=== PATIENT | male | born 1995 | race Caucasian/White ===

== ENCOUNTER 2020-03-29 06:39 | Day surgery (SDC) | payer BC ==
[~2020-03-29 06:39] MED LIST: Clindamycin Phosphate in D5W 600 MG in Premix Bag 1 BAG IV ONE; Lactated Ringers 1,000 ML IV SCH
--- NOTE | 2020-03-29 07:17 | PCM.PREANE ---
Preanesthetic Assessment - Anesthesia/Transfusion/Family Hx Anesthesia History: Prior Anesthesia Without Reaction Family History of Anesthesia Reaction: No Transfusion History: No Prior Transfusion(s) Intubation History: Unknown - Review of Systems General: No Symptoms Pulmonary: No Symptoms Cardiovascular: No Symptoms Gastrointestinal: No Symptoms Neurological: No Symptoms Other: Reports: None - Physical Assessment Height: 6 ft 3 in Weight: 117.934 kg ASA Class: 2 Mental Status: Alert & Oriented x3 Airway Class: Mallampati = 2 Dentition: Reports: Normal Dentition Thyro-Mental Finger Breadths: 3 Mouth Opening Finger Breadths: 3 ROM/Head Extension: Full Lungs: Clear to Auscultation, Normal Respiratory Effort Cardiovascular: Regular Rate, Regular Rhythm - Allergies Allergies/Adverse Reactions: Allergies Allergy/AdvReac Type Severity Reaction Status Date / Time No Known Allergies Allergy Verified 03/25/20 12:02 - Blood Blood Available: No - Anesthesia Plan Pre-Op Medication Ordered: None - Acknowledgements Anesthesia Type Planned: General Anesthesia Pt an Appropriate Candidate for the Planned Anesthesia: Yes Alternatives and Risks of Anesthesia Discussed w Pt/Guardian: Yes Pt/Guardian Understands and Agrees with Anesthesia Plan: Yes PreAnesthesia Questionnaire HEENT History: Reports: None Cardiovascular History: Reports: None Respiratory History: Reports: None Gastrointestinal History: Reports: None Genitourinary History: Reports: None Musculoskeletal History: Reports: None Neurological History: Reports: None Psychiatric History: Reports: None Endocrine/Metabolic History: Reports: Obesity/BMI 30+ (BMI M32.5) Hematologic History: Reports: None Immunologic History: Reports: None Oncologic (Cancer) History: Reports: None Dermatologic History: Reports: Other (See Below) (pilonidal cyst) - Infectious Disease History Infectious Disease History: Reports: Chicken Pox Other Infectious Disease History: when a child - Past Surgical History Head Surgeries/Procedures: Reports: None HEENT Surgical History: Reports: None Cardiovascular Surgical History: Reports: None GI Surgical History: Reports: None Female Surgical History: Male Surgical History: Reports: None Endocrine Surgical History: Reports: None Neurological Surgical History: Reports: None Musculoskeletal Surgical History: Reports: Other (See Below) Other Musculoskeletal Surgeries/Procedures:: states had an ingrown toenail right big toe removed surgically Dermatological Surgical History: Reports: Other (See Below) (I&D of pilonidal cyst last year) - SUBSTANCE USE Tobacco Use Status *Q: Current Every Day Tobacco User (1ppd) Tobacco Use Within Last Twelve Months: Cigarettes - HOME MEDS Home Medications: Home Meds Clindamycin HCl 1 tab PO TID 03/25/20 [History] oxyCODONE HCl/Acetaminophen [Oxycodone-Acetaminophen 5-325] 1 tab PO ASDIRECTED PRN 03/25/20 [History] - CURRENT (IN HOUSE) MEDS Current Meds: Current Medications Lactated Ringer's (Ringers, Lactated) 1,000 mls @ 125 mls/hr IV ASDIRECTED LINDA Discontinued Medications Clindamycin Phosphate 600 mg/ (Premix) 50 mls @ 100 mls/hr IV ONETIME ONE Stop: 03/29/20 05:29
[2020-03-29] MEDS ORDERED: Propofol 200 MG/20 ML SDV ONE ×2 (07:22→09:10)
[2020-03-29] MEDS ORDERED: fentaNYL 100 MCG/2 ML SDV ONE (07:22)
[2020-03-29] MEDS ORDERED: Midazolam 1 MG/ML 2 ML SDV ONE ×2 (07:22→08:09)
[2020-03-29] MEDS ORDERED: Glycopyrrolate 0.2 MG/ML SDV ONE (07:25)
[2020-03-29] MEDS ORDERED: Lidocaine 2% 5 ML SDV ONE (07:25)
[2020-03-29] MEDS ORDERED: Ketorolac 30 MG/ML SDV ONE (07:25)
[2020-03-29] MEDS ORDERED: Ondansetron 4 MG/2 ML SDV ONE (07:25)
[2020-03-29] MEDS ORDERED: Bupivacaine 25%/EPINEPHrine/PF 30 ML ONE ×2 (07:26→09:01)
[2020-03-29] MEDS ORDERED: ceFAZolin 1 GM Vial ONE (07:35)
[2020-03-29] MEDS ORDERED: Methylene Blue 50 MG/10 ML Ampule ONE (07:56)
--- NOTE | 2020-03-29 09:55 | PCM.OPNOTE ---
- General Post-Op/Procedure Note Date of Surgery/Procedure: 03/29/20 Operative Procedure(s): recurrent pilonidal cystectomy Findings: some residual infection, and extensive diseases covered a tract over 9 cm, tract excised, and wound packing; [id number] Pre Op Diagnosis: recurrent pilonidal cystitis Post-Op Diagnosis: Same Primary Surgeon: Neel Arevalo Pathology: sent Complications: None Condition: Good
--- NOTE | 2020-03-29 10:06 | PCM.POSTAN ---
POST ANESTHESIA ASSESSMENT - MENTAL STATUS Mental Status: Alert, Oriented - VITAL SIGNS Vital Signs: Last Vital Signs Temp 36.4 C 03/29/20 09:27 Pulse 59 L 03/29/20 09:52 Resp 12 03/29/20 09:52 BP 135/66 03/29/20 09:52 Pulse Ox 96 03/29/20 09:52 - RESPIRATORY Respiratory Status: Respiratory Rate WNL, Airway Patent, O2 Saturation Stable - CARDIOVASCULAR CV Status: Pulse Rate WNL, Blood Pressure Stable - GASTROINTESTINAL GI Status: No Symptoms - PAIN Pain Score: 0 - POST OP HYDRATION Hydration Status: Adequate & Stable - OBSERVATIONS Free Text/Narrative:: No anesthesia problems
--- NOTE | 2020-03-29 12:02 | PCM48HPAN ---
Post Anesthesia Note - EVALUATION WITHIN 48HRS OF ANESTHETIC Vital Signs in Normal Range: Yes Patient Participated in Evaluation: Yes Respiratory Function Stable: Yes Airway Patent: Yes Cardiovascular Function Stable: Yes Hydration Status Stable: Yes Pain Control Satisfactory: Yes Nausea and Vomiting Control Satisfactory: Yes Mental Status Recovered: Yes Vital Signs: Last Vital Signs Temp 36.5 C 03/29/20 09:58 Pulse 57 L 03/29/20 10:28 Resp 14 03/29/20 10:28 BP 142/62 H 03/29/20 10:28 Pulse Ox 98 03/29/20 10:28 - COMMENTS/OBSERVATIONS Free Text/Narrative:: No anesthesia problems
--- NOTE | 2020-03-29 13:52 | OR ---
SURGEON: Neel Arevalo MD DATE OF PROCEDURE: 03/29/2020 PREOPERATIVE DIAGNOSIS: Recurrent pilonidal cystitis. POSTOPERATIVE DIAGNOSIS: Recurrent pilonidal cystitis. PROCEDURE PERFORMED: Pilonidal cystectomy. PRIMARY SURGEON: Neel Arevalo MD COMPLICATIONS: None. FINDING: There were some residual infections and very extensive disease covering the tract over 9 cm. The tract excised and the wound is packed. The patient is a 24-year-old large-framed tall linda, complaining of over 1 to 1- 1/2 year history of recurrent infection on the pilonidal cyst, treated with incision and drainage in the office 3 weeks ago and infection seemed to be resolved and now for surgery intervention. DESCRIPTION OF PROCEDURE: The patient was taken to the operating room and placed in the supine position. Upon induction of mild general sedation, the patient was positioned into a prone position. The patient was not completely out, but had good sedation. The patient's perineum was prepped and draped in a sterile fashion. Time-out was being called, patient identified, procedure identified, antibiotic given and then procedure started. The place of excision has been marked and the patient's perineum was then prepped and draped in a sterile fashion. The patient has high up infection, very very high up, and the patient has pits and dots right at the midline crease of the buttock consistent with pilonidal cyst. The distance between the infection and the opening was close to about 8 cm, and using hydrogen peroxide and methylene blue combination, the hole was injected with dye and the whole tract was planned to excise. The infection site has some scar tissue and pretty big and also with some destructive disease because of chronicity. Using a skin scalpel from the top infection site all the way down to the lowest hole including the skin was excised. The whole thing close to about 10 cm. Everything blue covered with dye was excised. Good hemostasis was accomplished by use of electrocautery. Local anesthetic was then infiltrated and followed with closing with 2-0 Ethilon until stitch loosely closed, cannot close because of infection and the wound was then packed with 1 inch plain gauze followed by appropriate dressing. The patient was awakened and repositioned in supine position and transferred to the recovery room in hemodynamically stable condition. The patient tolerated the procedure well. There were no intraoperative complications. Infection and wound healing are still a big issue for this young gentleman and long discussion with county agricultural agent, mom, very careful that stool should not be contaminating the wound when the patient has a bowel movement. By the way, the bottom opening is at least 1-1/2 palm from the surgical site so should not be an issue, and the patient will have to change dressing at least in 2 to 3 days either in my office or at local place and continue couple of antibiotics. DARIUS / BINTA /[id number] KALEY
== END 2020-03-29 12:25 | disposition home or self-care (01) ==
LOC: MW.SDS 06:39
PROVIDERS: ATTEND Surgery
DX: L05.01 Pilonidal cyst with abscess (principal); F17.210 Nicotine dependence, cigarettes, uncomplicated; E66.9 Obesity, unspecified; Z68.32 Body mass index [BMI] 32.0-32.9, adult; Z79.899 Other long term (current) drug therapy; Z98.890 Other specified postprocedural states
CPT/HCPCS: 11770; J1885; J2001; J2250; J2405; J2704; J3010; J3490; J7120; J0690